=== PATIENT | female | born 1950 | race Caucasian/White ===

== ENCOUNTER 2023-04-06 08:19 | Day surgery (SDC) | payer OTHER ==
[~2023-04-06] VITALS: Ht 154.9 cm; Wt 69.9 kg
[~2023-04-06 08:19] MED LIST: CEFAZOLIN 2 GM IVPB PREMIX 50 ML IV ONE; cefOXitin 2 GM IVPB PREMIX 50 ML IV ONE
[2023-04-06] MEDS ORDERED: fentaNYL CITRATE/PF 100 MCG/2 ML AMP ONE (12:45)
[2023-04-06] MEDS ORDERED: PROPOFOL 200MG/ 20ML VIAL (DIPRIVAN) IV ONE (12:45)
[2023-04-06] MEDS ORDERED: GLYCOPYRROLATE 0.2 MG/ML VIAL ONE (12:45)
[2023-04-06] MEDS ORDERED: DEXAMETHASONE SOD PHOSPHATE 4 MG/ML VIAL ONE (12:45)
[2023-04-06] MEDS ORDERED: ONDANSETRON HCL 4 MG/2 ML VIAL ONE ×3 (12:45→17:45)
[2023-04-06] MEDS ORDERED: NS IRRIG SOLN 1000 ML IR ONE (12:45)
[2023-04-06] MEDS ORDERED: SEVOFLURANE 15 MIN GAS INH ONE (12:45)
[2023-04-06] MEDS ORDERED: HYDROMORPHONE HCL IN 0.9% NACL 0.2 MG/ML DRIP IV ONE (12:45)
[2023-04-06] MEDS ORDERED: ROCURONIUM BROMIDE 10 MG/ML (ZEMURON) ONE (12:45)
[2023-04-06] MEDS ORDERED: NEOSTIGMINE METHYLSULFATE 1 MG/ML, 10 ML VIAL ONE (12:45)
[2023-04-06] MEDS ORDERED: LIDOCAINE 2%, 20 ML MDV ONE (12:45)
[2023-04-06] MEDS ORDERED: NS 50 ML BAG IV ONE (12:45)
[2023-04-06] MEDS ORDERED: MIDAZOLAM HCL/PF 2 MG/2 ML SYRINGE ONE (12:45)
[2023-04-06 12:50] VITALS: O2SAT 99
[2023-04-06] MEDS ORDERED: MEPERIDINE HCL/PF 25 MG/ML DISP.SYRIN IVP PRN (14:15)
[2023-04-06] MEDS ORDERED: HYDROmorphone 1 MG/ML INJ. CARTRIDGE IVP PRN ×3 (14:15→16:00)
[2023-04-06] MEDS ORDERED: METOCLOPRAMIDE HCL 10 MG/2 ML VIAL IVP PRN ×2 (14:15→16:00)
[2023-04-06] MEDS ORDERED: LR 1,000 ML IV SCH (14:15)
[2023-04-06] MEDS ORDERED: MIDAZOLAM HCL 2 MG/2 ML VIAL (VERSED) IVP PRN (14:15)
[2023-04-06] MEDS ORDERED: LABETALOL 100 MG/ 20ML VIAL IVP PRN (14:15)
[2023-04-06] MEDS ORDERED: MORPHINE 4 MG INJ. 4 MG/ML VIAL IVP PRN ×2 (16:00)
[2023-04-06] MEDS ORDERED: ONDANSETRON HCL 4 MG/2 ML VIAL IVP PRN (16:00)
[2023-04-06] MEDS ORDERED: INSULIN REGULAR, HUMAN 100 UNITS/ML, 3 ML VIAL SUBCUT ONE (19:30)
[2023-04-06 19:52] VITALS: BP_SYST 164; PULSE 102; RESP 18
== END 2023-04-06 19:52 | disposition home or self-care (01) ==
LOC: SMU 08:19 → SDS 08:19
PROVIDERS: ATTEND Surgery
DX: C50.912 Malignant neoplasm of unspecified site of left female breast (principal); C50.911 Malignant neoplasm of unspecified site of right female breast; I10 Essential (primary) hypertension; E11.9 Type 2 diabetes mellitus without complications; E78.5 Hyperlipidemia, unspecified; Z79.899 Other long term (current) drug therapy
CPT/HCPCS: 87081; 19303; 38525; 38900; 84132; 36415; 78195; 82948; 88307; 88333; 88361; 88341; 88342; A9541; J0690; J1100; J3490; J1815; J3465; J2405; J2704; J3010; J2710; 88305; 88309; J0694; J2001